=== PATIENT | female | born 1965 | race Caucasian/White ===

== ENCOUNTER 2017-09-14 18:10 | Emergency (ER) | payer OTHER ==
[~2017-09-14] VITALS: Ht 165.1 cm; Wt 63.5 kg
[~2017-09-14 18:10] MED LIST: IBUP-81
[2017-09-14 18:31] VITALS: BP 121/74
[2017-09-14] MEDS ORDERED: METOCLOPRAMIDE 10 MG/2 ML INJ VIAL IM STA (18:48)
[2017-09-14] MEDS ORDERED: METOCLOPRAMIDE 10 MG/2 ML INJ VIAL ONE (18:54)
--- NOTE | 2017-09-14 19:10 | NUR ---
Pt placed in bed 12.
[2017-09-14 19:11] LABS: BASOPHILS # (AUTO) 0.2 K/uL (0.00-0.22); BASOPHILS % (AUTO) 2.4 % (0.0-2.0); EOSINOPHILS # (AUTO) 0.1 K/uL (0-0.4); EOSINOPHILS % (AUTO) 1.1 % (0.0-4.0); HEMOGLOBIN 13.6 g/dL (12.0-16.0); LYMPHOCYTES % (AUTO) 21.9 % (20.5-51.1); MEAN CORPUSCULAR HEMOGLOBIN 30 pg (27-31); MEAN CORPUSCULAR HGB CONC 33 g/dL (33-37); MEAN CORPUSCULAR VOLUME 90 fL (80-94); MONOCYTES # (AUTO) 0.1 K/uL (0.8-1.0); MONOCYTES % (AUTO) 1.5 % (1.7-9.3); NEUTROPHILS # (AUTO) 6.6 K/uL (1.8-7.7); NEUTROPHILS % (AUTO) 73.1 % (42.2-75.2); PLATELET COUNT (AUTO) 323 K/uL (140-450); RED BLOOD CELL COUNT(AUTO) 4.56 MIL/uL (4.20-5.40); RED CELL DISTRIBUTION WIDTH 12.9 % (11.6-13.7)
[2017-09-14 19:11] LABS: APPEARANCE,URINE CLEAR (CLEAR); BILIRUBIN,URINE 1+ (NEGATIVE); BLOOD, URINE TRACE-I (NEGATIVE); COLOR,URINE YELLOW (YELLOW); LEUKOCYTE ESTERASE ,URINE NEGATIVE (NEGATIVE); NITRITE, URINE NEGATIVE (NEGATIVE); UGLUCOSE NEGATIVE (NEGATIVE)
[2017-09-14 19:19] LABS: RBC,URINE 3-10 (FEW) /HPF (0-5); WBC,URINE 0-5 (RARE) /HPF (0-5)
[2017-09-14 19:26] LABS: ANION GAP 14.7 (8-16); CARBON DIOXIDE 25.9 mmol/L (21-32); CREATININE 0.9 mg/dL (0.6-1.3); POTASSIUM 3.6 mmol/L (3.5-5.1)
[2017-09-14 19:29] LABS: TOTAL BILIRUBIN 0.3 mg/dL (0.0-1.0)
[2017-09-14 19:30] LABS: ALBUMIN 4.1 g/dL (3.4-5.0)
[2017-09-14] MEDS ORDERED: MECLIZINE 25 MG TAB PO ONE (19:35)
--- NOTE | 2017-09-14 19:40 | NUR ---
PATIENT PRESENTS TO ED WITH dizziness, n/v/d . PT STATES starting today she began to feel symptoms, denies trauma.SKIN IS PINK/WARM/DRY; AAOX4 WITH EVEN AND STEADY GAIT; LUNGS CLEAR BL; HR EVEN AND REGULAR; PT DENIES ANY FEVER, CP, SOB, OR COUGH AT THIS TIME; PATIENT STATES PAIN OF 0/10 AT THIS TIME;abd soft, round, non tender, active bs x4; VSS; PATIENT POSITIONED FOR COMFORT; HOB ELEVATED; BEDRAILS UP X2; BED DOWN. ER MD MADE AWARE OF PT STATUS. hx cervical cancer, NKA, NO RX
[2017-09-14 19:54] LABS: BARBITURATE, URINE NEG. ng/ml (NEG <=200); BENZODIAZEPINE, URINE NEG. ng/mL (NEG <=200); CANNABINOID, URINE NEG. ng/mL (NEG <=50); COCAINE, URINE NEG. ng/mL (NEG <=300); OPIATE, URINE NEG. ng/mL (NEG <=2000); PHENCYCLIDINE SCREEN,URINE NEG. ng/mL (NEG <=25)
[2017-09-14 19:59] LABS: LIPASE 102 U/L (73-393)
[2017-09-14] MEDS ORDERED: ONDANSETRON 4 MG/2 ML VIAL ONE ×2 (20:02→20:52)
[2017-09-14] MEDS ORDERED: ONDANSETRON 4 MG/2 ML VIAL IVP ONE ×2 (20:10→22:05)
--- NOTE | 2017-09-14 20:40 | NUR ---
PT STILL VOMITING, DR CHOI NOTIFIED, VERBAL ORDER 4MG ZOFRAN.
--- NOTE | 2017-09-14 21:20 | NUR ---
PT IN BED RESTING STATES "FEELS BETTER" NO VOMITING AT THIS TIME.
--- NOTE | 2017-09-14 21:35 | NUR ---
Pt taken to CT via rraul.
--- NOTE | 2017-09-14 22:50 | NUR ---
IV removed, catheter intact and site benign. Applied folded 4x4 gauze and tape to stop bleeding.
[2017-09-14 22:57] VITALS: BP 109/60
--- NOTE | 2017-09-14 22:57 | NUR ---
Patient discharged with v/s stable. Written and verbal after care instructions given and explained. Patient alert, oriented and verbalized understanding of instructions. Ambulatory with steady gait. All questions addressed prior to discharge. ID band removed. Patient advised to follow up with PMD. Rx of meclizine 25mg given. Patient educated on indication of medication including possible reaction and side effects. Opportunity to ask questions provided and answered.
== END 2017-09-14 22:57 | disposition home or self-care (01) ==
LOC: MED 18:10
DX: R11.2 Nausea with vomiting, unspecified (principal); R42 Dizziness and giddiness; Z96.643 Presence of artificial hip joint, bilateral; Z79.899 Other long term (current) drug therapy
CPT/HCPCS: 36415; 70450; 71010; 80053; 80305; 81001; 82550; 83690; 84484; 85025; 93005; 96372; 96374; 96375; 99285; G0482; J2405; J2765; J8597; Q0092

== ENCOUNTER 2023-11-17 10:24 | Emergency (ER) | payer OTHER ==
[~2023-11-17] VITALS: Ht 157.5 cm; Wt 72.6 kg
[2023-11-17 10:38] VITALS: BP 140/81; PULSE 95; RESP 18; TEMP 98.6; O2SAT 96
[2023-11-17 11:52] LABS: BASOPHILS % (AUTO) 0.3 % (0.0-2.0); EOSINOPHILS # (AUTO) 0.1 K/uL (0-0.4); EOSINOPHILS % (AUTO) 1.6 % (0.0-4.0); HEMOGLOBIN 13.2 g/dL (12.0-16.0); LYMPHOCYTES # (AUTO) 1.3 K/uL (2.5-16.5); LYMPHOCYTES % (AUTO) 31.2 % (20.5-51.1); MEAN CORPUSCULAR HEMOGLOBIN 31 pg (27-31); MEAN CORPUSCULAR HGB CONC 34 g/dL (33-37); MEAN CORPUSCULAR VOLUME 90.8 fL (80-94); MONOCYTES # (AUTO) 0.2 K/uL (0.8-1.0); MONOCYTES % (AUTO) 5.6 % (1.7-9.3); NEUTROPHILS # (AUTO) 2.5 K/uL (1.8-7.7); NEUTROPHILS % (AUTO) 61.3 % (42.2-75.2); PLATELET COUNT (AUTO) 276 K/uL (140-450); RED BLOOD CELL COUNT(AUTO) 4.29 MIL/uL (4.20-5.40); RED CELL DISTRIBUTION WIDTH 13.7 % (11.6-13.7); WHITE BLOOD COUNT (AUTO) 4.1 K/uL (4.8-10.8)
[2023-11-17 11:55] LABS: APPEARANCE,URINE CLEAR (CLEAR); BILIRUBIN,URINE NEGATIVE (NEGATIVE); BLOOD, URINE 1+ (NEGATIVE); COLOR,URINE YELLOW (YELLOW); LEUKOCYTE ESTERASE ,URINE NEGATIVE (NEGATIVE); NITRITE, URINE NEGATIVE (NEGATIVE); PROTEIN,URINE NEGATIVE (NEGATIVE); UGLUCOSE NEGATIVE (NEGATIVE); UROBILINOGEN,URINE 0.2 EU/dL (0.2 - 1)
[2023-11-17] MEDS ORDERED: KETOROLAC 30 MG/ML VIAL IVP ONE (12:00)
[2023-11-17] MEDS ORDERED: ONDANSETRON 4 MG/2 ML VIAL IVP ONE (12:00)
[2023-11-17 12:12] LABS: ANION GAP 11.3 (8-16); CALCIUM 8.9 mg/dL (8.5-10.1); CARBON DIOXIDE 27.1 mmol/L (21-32); CREATININE 0.8 mg/dL (0.6-1.3); POTASSIUM 3.4 mmol/L (3.5-5.1)
[2023-11-17] MEDS ORDERED: KETOROLAC 15 MG/ML VIAL ONE (12:13)
[2023-11-17 12:21] LABS: LACTIC ACID 2.3 mmol/L (0.4-2.0)
[2023-11-17 12:22] LABS: INR 0.95 (0.8-1.2); PARTIAL THROMBOPLASTIN TIME 24.7 secs (22-35.6)
[2023-11-17] MEDS ORDERED: NACL 0.9% 1,000 ML IV ONE (12:30)
[2023-11-17] MEDS ORDERED: cefTRIAXone 1,000 MG VIAL ONE (12:41)
[2023-11-17] MEDS ORDERED: POTASSIUM CHLORIDE 10 MEQ TABER PO ONE (12:45)
[2023-11-17 12:49] LABS: ALBUMIN 3.3 g/dL (3.4-5.0); BILIRUBIN,DIRECT 0.1 mg/dL (0.0-0.3); TOTAL BILIRUBIN 0.2 mg/dL (0.0-1.0); TOTAL PROTEIN, SERUM 7.9 g/dL (6.4-8.2)
[2023-11-17] MEDS ORDERED: ACET-10509 PO (13:50)
[2023-11-17] MEDS ORDERED: ONDA-188 PO (13:50)
[2023-11-17] MEDS ORDERED: IBUP-2213 PO (13:50)
[2023-11-17 14:36] VITALS: BP 120/59; PULSE 66; RESP 12; O2SAT 99
== END 2023-11-17 14:38 | disposition home or self-care (01) ==
LOC: MED 10:24
DX: K57.90 Diverticulosis of intestine, part unspecified, without perforation or abscess without bleeding (principal); Z79.899 Other long term (current) drug therapy
CPT/HCPCS: 36415; 74176; 80048; 80076; 81003; 83605; 83690; 85025; 85610; 85730; 87040; 96365; 96375; 99285; J0696; J1885; J2405; J7030